=== PATIENT | male | born 1940 | race Caucasian/White ===

== ENCOUNTER → 2018-04-17 | Outpatient (CLI) | payer MEDICARE ==
[2018-04-17 12:30] LABS: BASOPHILS # (AUTO) 0.03 x10^3/uL (0-0.1); BASOPHILS % (AUTO) 1 % (0-1); EOSINOPHILS # (AUTO) 0.37 x10^3/uL (0-0.4); EOSINOPHILS % (AUTO) 7 % (1-7); LYMPHOCYTES # (AUTO) 1.77 x10^3/uL (1-3.4); LYMPHOCYTES % (AUTO) 35 % (22-44); MD NO; MEAN CORPUSCULAR HEMOGLOBIN 32.4 pg (27.5-34.5); MEAN CORPUSCULAR HGB CONC 33.4 g/dL (33.2-36.2); MEAN CORPUSCULAR VOLUME 96.9 fL (81-97); MEAN PLATELET VOLUME 8.2 fL (7.4-10.4); MONOCYTES # (AUTO) 0.42 x10^3/uL (0.2-0.8); MONOCYTES % (AUTO) 8 % (2-9); NEUTROPHILS % (AUTO) 49 % (42-75); PLATELET COUNT 222 x10^3/uL (130-400); RED BLOOD COUNT 4.57 x10^6/uL (4.38-5.82); RED CELL DISTRIBUTION WIDTH 14.1 % (9.4-14.8)
[2018-04-17 12:51] LABS: CHLORIDE 105 mmol/L (98-107); HEMOGLOBIN A1C 6.4 % (4.2-6.3)
[2018-04-17 13:08] LABS: ALANINE AMINOTRANSFERASE 31 U/L (12-78); ALBUMIN 3.9 g/dL (3.4-5.0); ALKALINE PHOSPHATASE 66 U/L (45-117); ANION GAP 7 mmol/L (5-15); BILIRUBIN,TOTAL 1.1 mg/dL (0.2-1.0); CALCIUM 9.3 mg/dL (8.5-10.1); CHOL/HDL RATIO 3.5; CHOLESTEROL, TOTAL 132 mg/dL (140-239); CREATININE 1.04 mg/dL (0.7-1.3); HDL CHOL % 29 % (26-37); HDL CHOLESTEROL (DIRECT) 38 mg/dL (40-60); LDL CHOLESTEROL,CALCULATED 68 mg/dL (54-169); LDL/HDL RATIO 1.8 (0.5-3.0); TOTAL PROTEIN 7.2 g/dL (6.4-8.2); TRIGLYCERIDES 130 mg/dL (50-200); VLDL CHOLESTEROL 26 mg/dL (0-25)
== END | disposition home or self-care (01) ==
LOC: EDSEX 08:15 → CFH 08:18
PROVIDERS: ATTEND Physician Assistant
DX: I71.4 Abdominal aortic aneurysm, without rupture (principal); Q61.02 Congenital multiple renal cysts; M81.0 Age-related osteoporosis without current pathological fracture; N40.0 Benign prostatic hyperplasia without lower urinary tract symptoms; I11.9 Hypertensive heart disease without heart failure; G47.00 Insomnia, unspecified; E78.5 Hyperlipidemia, unspecified; G31.84 Mild cognitive impairment of uncertain or unknown etiology; E55.9 Vitamin D deficiency, unspecified; R73.01 Impaired fasting glucose; R09.02 Hypoxemia
CPT/HCPCS: 36415; 76770; 77080; 80053; 80061; 82306; 83036; 84153; 84402; 84403; 84443; 85025; 93306

== ENCOUNTER → 2018-04-24 | Outpatient (CLI) | payer MEDICARE | END | disposition home or self-care (01) | LOC: CFH 14:39 | PROVIDERS: ATTEND Physician Assistant | DX: Z00.01 Encounter for general adult medical examination with abnormal findings (principal); Z13.220 Encounter for screening for lipoid disorders; Z12.11 Encounter for screening for malignant neoplasm of colon; Z12.5 Encounter for screening for malignant neoplasm of prostate; I10 Essential (primary) hypertension; E78.5 Hyperlipidemia, unspecified; G47.00 Insomnia, unspecified; R09.02 Hypoxemia; I71.4 Abdominal aortic aneurysm, without rupture; K21.9 Gastro-esophageal reflux disease without esophagitis; K22.70 Barrett's esophagus without dysplasia; M25.561 Pain in right knee; G31.84 Mild cognitive impairment of uncertain or unknown etiology; R73.01 Impaired fasting glucose; R01.1 Cardiac murmur, unspecified; M54.5 Low back pain; N28.89 Other specified disorders of kidney and ureter; E55.9 Vitamin D deficiency, unspecified; R79.9 Abnormal finding of blood chemistry, unspecified; R93.8 Abnormal findings on diagnostic imaging of other specified body structures | CPT/HCPCS: 36415; 83001; 83002; 84146 ==

== ENCOUNTER → 2019-01-16 | Outpatient (CLI) | payer MEDICARE ==
[2019-01-16 13:38] LABS: MICROSCOPIC NOT IND
[2019-01-16 13:46] LABS: CULTURE INDICATED? NO
== END | disposition home or self-care (01) ==
LOC: CFH 11:02
PROVIDERS: ATTEND Physician Assistant
DX: I10 Essential (primary) hypertension (principal); E78.5 Hyperlipidemia, unspecified; K21.9 Gastro-esophageal reflux disease without esophagitis; E55.9 Vitamin D deficiency, unspecified; N40.0 Benign prostatic hyperplasia without lower urinary tract symptoms; K22.70 Barrett's esophagus without dysplasia; R73.01 Impaired fasting glucose
CPT/HCPCS: 36415; 81003; 84153

== ENCOUNTER 2019-06-12 14:44 | Outpatient (CLI) | payer MEDICARE ==
[2019-06-12] MEDS ORDERED: FINA5TAB4 PO (15:41)
[2019-06-12] MEDS ORDERED: MIRT-34 PO (15:41)
[2019-06-12] MEDS ORDERED: MISO100T4 PO (15:41)
[2019-06-12] MEDS ORDERED: ASPI81TA45 PO (15:41)
[2019-06-12] MEDS ORDERED: [UNRECOGNIZED DRUG - OTHER] PO (15:41)
[2019-06-12] MEDS ORDERED: TEST100V2 IM (15:41)
[2019-06-12] MEDS ORDERED: ATOR40TA78 PO (15:41)
[2019-06-12] MEDS ORDERED: AMLO10TA8 PO (15:41)
[2019-06-12] MEDS ORDERED: TAMS-11 PO (15:41)
[2019-06-12] MEDS ORDERED: TRIAMCINOLONE ACET TP (15:41)
[2019-06-12 15:46] LABS: BASOPHILS # (AUTO) 0.02 x10^3/uL (0-0.1); BASOPHILS % (AUTO) 0 % (0-1); EOSINOPHILS # (AUTO) 0.31 x10^3/uL (0-0.4); EOSINOPHILS % (AUTO) 4 % (1-7); LYMPHOCYTES # (AUTO) 2.22 x10^3/uL (1-3.4); LYMPHOCYTES % (AUTO) 28 % (22-44); MD NO; MEAN CORPUSCULAR HEMOGLOBIN 31.5 pg (27.5-34.5); MEAN CORPUSCULAR HGB CONC 32.6 g/dL (33.2-36.2); MEAN CORPUSCULAR VOLUME 96.4 fL (81-97); MONOCYTES # (AUTO) 0.54 x10^3/uL (0.2-0.8); MONOCYTES % (AUTO) 7 % (2-9); NEUTROPHILS # (AUTO) 4.78 x10^3/uL (1.8-6.8); NEUTROPHILS % (AUTO) 61 % (42-75); PLATELET COUNT 232 x10^3/uL (130-400); RED BLOOD COUNT 5.38 x10^6/uL (4.38-5.82); RED CELL DISTRIBUTION WIDTH 14.4 % (9.4-14.8)
[2019-06-12 15:48] LABS: MICROSCOPIC NOT IND
[2019-06-12 15:55] LABS: ALANINE AMINOTRANSFERASE 33 U/L (12-78); ANION GAP 5 mmol/L (5-15); CHLORIDE 107 mmol/L (98-107); CREATININE 1.02 mg/dL (0.7-1.3)
[2019-06-12 15:57] LABS: ALKALINE PHOSPHATASE 72 U/L (45-117); BILIRUBIN,TOTAL 1.1 mg/dL (0.2-1.0); TOTAL PROTEIN 7.8 g/dL (6.4-8.2)
[2019-06-12 16:07] LABS: INTERNATIONAL NORMALIZED RATIO 1.05 (0.93-1.1)
== END 2019-06-12 23:59 | disposition home or self-care (01) ==
LOC: STAR 14:44
PROVIDERS: ATTEND Urology
DX: Z01.818 Encounter for other preprocedural examination (principal); N40.1 Benign prostatic hyperplasia with lower urinary tract symptoms; I34.0 Nonrheumatic mitral (valve) insufficiency; I48.91 Unspecified atrial fibrillation; J44.9 Chronic obstructive pulmonary disease, unspecified; I50.9 Heart failure, unspecified; Z95.0 Presence of cardiac pacemaker
CPT/HCPCS: 36415; 80053; 81003; 85025; 85610; 85730; 87086; 93005

== ENCOUNTER 2019-06-19 10:36 | Inpatient (IN) | payer MEDICARE ==
[~2019-06-19] VITALS: Ht 190.5 cm; Wt 125.0 kg
[~2019-06-19 10:36] MED LIST: AMLO10TA8 PO; ASPI81TA45 PO; ATOR40TA78 PO; FINA5TAB4 PO; MIRT-34 PO; MISO100T4 PO; TAMS-11 PO; TEST100V2 IM; TRIAMCINOLONE ACET TP; [UNRECOGNIZED DRUG - OTHER] PO
[2019-06-19] MEDS ORDERED: FENTANYL PF 250 MCG/5ML ONE (10:38)
[2019-06-19] MEDS ORDERED: MIDAZOLAM 1 MG/ML, 2ML ONE (10:38)
[2019-06-19] MEDS ORDERED: LACTATED RINGERS 1,000 ML IV SCH (10:50)
[2019-06-19] MEDS ORDERED: ONDANSETRON 2MG/ML, 2ML IV PRN ×2 (11:00→16:00)
[2019-06-19] MEDS ORDERED: HYDROmorphone 2 MG/ML, 1ML IVPush PRN (11:00)
[2019-06-19] MEDS ORDERED: hydrALAzine 20 MG/ML, 1ML IV PRN (11:00)
[2019-06-19] MEDS ORDERED: LABETALOL 5MG/ML, 20ML IV PRN (11:00)
[2019-06-19] MEDS ORDERED: PROMETHAZINE 25 MG/ML, 1ML IV PRN (11:00)
[2019-06-19] MEDS ORDERED: OXYcodone 5 MG/5 ML ORAL.SOL UDC PO PRN (11:00)
[2019-06-19] MEDS ORDERED: CEFAZOLIN 1,000 MG ONE ×2 (12:37)
[2019-06-19] MEDS ORDERED: PROPOFOL 10 MG/ML, 20ML ONE (12:37)
[2019-06-19] MEDS ORDERED: DEXAMETHASONE 4 MG/ML, 1ML ONE (12:38)
[2019-06-19] MEDS ORDERED: EPHEDRINE 50 MG/ML, 1ML ONE (13:24)
[2019-06-19] MEDS ORDERED: ONDANSETRON 2MG/ML, 2ML ONE (13:25)
[2019-06-19] MEDS ORDERED: OPIUM/BELLADONNA SUPP.RECT 16.2-60 MG ONE (13:59)
[2019-06-19] MEDS: FENTANYL PF 100 MCG/2ML IV PRN ×2 (14:28→14:40)
[2019-06-19] MEDS ORDERED: OXYcodone 5 MG/5 ML ORAL.SOL UDC ONE (14:33)
[2019-06-19] MEDS ORDERED: FENTANYL PF 100 MCG/2ML ONE (14:33)
[2019-06-19] MEDS ORDERED: PROMETHAZINE 25 MG/ML, 1ML ONE (14:41)
[2019-06-19 15:20] VITALS: BP 114/71
[2019-06-19] MEDS ORDERED: ACETAMINOPHEN 325 MG TABLET PO PRN (15:30)
[2019-06-19] MEDS ORDERED: SODIUM CHLORIDE 0.9% 1,000 ML IV SCH (16:00)
[2019-06-19] MEDS ORDERED: HYDROCODONE MC SCH (16:00)
[2019-06-19] MEDS ORDERED: OPIUM/BELLADONNA SUPP.RECT 16.2-30 MG PR PRN (16:00)
[2019-06-19] MEDS: HYDROcodone/APAP 5/325 TABLET PO PRN ×2 (18:10→23:49)
[2019-06-19] MEDS ORDERED: CEFAZOLIN PMX 1GM/50ML 50 ML IVPB SCH (18:30)
[2019-06-19 19:56] VITALS: BP 144/88
[2019-06-19] MEDS ORDERED: ATORVASTATIN 40 MG TABLET PO SCH (21:00)
[2019-06-20 01:27] VITALS: BP 107/67
[2019-06-20] MEDS ORDERED: CEFAZOLIN PMX 1GM/50ML 50 ML IVPB SCH (02:30)
[2019-06-20 04:04] VITALS: BP 145/73
[2019-06-20 05:46] LABS: ANION GAP 4 mmol/L (5-15); CALCIUM 8.2 mg/dL (8.5-10.1); CHLORIDE 106 mmol/L (98-107)
[2019-06-20 05:47] LABS: CREATININE 0.94 mg/dL (0.7-1.3)
[2019-06-20] MEDS: HYDROcodone/APAP 5/325 TABLET PO PRN (06:38)
[2019-06-20 08:04] VITALS: BP 116/70
[2019-06-20] MEDS ORDERED: AMLODIPINE 10 MG TAB PO SCH (09:00)
[2019-06-20] MEDS ORDERED: MISOPROSTOL 100 MCG TABLET PO SCH (09:00)
[2019-06-20] MEDS ORDERED: FINASTERIDE 5 MG TABLET PO SCH (09:00)
[2019-06-20] MEDS: MIRTAZAPINE 15 MG TABLET PO SCH ×2 (09:14→09:22)
[2019-06-20 13:54] VITALS: BP 126/75
== END 2019-06-20 15:12 | disposition home or self-care (01) | DRG 713 ==
LOC: OUT 10:36 → 4NE 15:19 → OUT 15:56 → DCLOUNGE 06-20 15:03
PROVIDERS: ADMIT Urology; ATTEND Urology
PROC: 0VT08ZZ Resection of Prostate, Via Natural or Artificial Opening Endoscopic (ICD-10-PCS; principal; 2019-06-19 12:30)
DX: N40.1 Benign prostatic hyperplasia with lower urinary tract symptoms (principal); N13.8 Other obstructive and reflux uropathy; N32.89 Other specified disorders of bladder; I10 Essential (primary) hypertension; R33.8 Other retention of urine
CPT/HCPCS: 36415; 80048; 85014; 85018; 88305; G0378; J0690; J1100; J2250; J2405; J2550; J2704; J3010; J7030; J7120

== ENCOUNTER → 2020-06-22 | Outpatient (CLI) | payer MEDICARE ==
[~2020-06-22] MED LIST changes: +AMLO-211 PO; -AMLO10TA8 PO; -MISO100T4 PO; +MISO100T7 PO; +OMNIPAQUE 350 MG/ML, 100ML BOTTLE ONE
== END | disposition home or self-care (01) ==
LOC: CFH 10:30
PROVIDERS: ATTEND Surgery
DX: I71.4 Abdominal aortic aneurysm, without rupture (principal); R19.09 Other intra-abdominal and pelvic swelling, mass and lump; N28.1 Cyst of kidney, acquired; I25.10 Atherosclerotic heart disease of native coronary artery without angina pectoris; Z90.49 Acquired absence of other specified parts of digestive tract
CPT/HCPCS: 74174; 82565; Q9967

== ENCOUNTER 2020-07-09 06:10 | Day surgery (SDC) | payer MEDICARE ==
[~2020-07-09] VITALS: Ht 190.5 cm; Wt 115.6 kg
[~2020-07-09 06:10] MED LIST changes: -OMNIPAQUE 350 MG/ML, 100ML BOTTLE ONE
[2020-07-09 07:08] VITALS: BP 132/66
[2020-07-09] MEDS ORDERED: SODIUM CHLORIDE 0.9% 1,000 ML IV SCH (07:09)
[2020-07-09] MEDS ORDERED: FENTANYL PF 100 MCG/2ML ONE (07:49)
[2020-07-09] MEDS ORDERED: FLUMAZENIL 0.1 MG/1 ML, 5ML ONE (07:49)
[2020-07-09] MEDS ORDERED: NALOXONE 1 MG/ML, 2ML ONE (07:49)
[2020-07-09] MEDS ORDERED: MIDAZOLAM 1 MG/ML, 5ML ONE (07:49)
== END 2020-07-09 10:35 | disposition home or self-care (01) ==
LOC: OUT 06:10 → EDSTATUS 08:00 → OUT 10:35
PROVIDERS: ATTEND Thoracic Surgery (Cardiothoracic Vascular Surgery)
DX: R19.04 Left lower quadrant abdominal swelling, mass and lump (principal); I10 Essential (primary) hypertension; G47.30 Sleep apnea, unspecified; E78.00 Pure hypercholesterolemia, unspecified; Z72.0 Tobacco use; Z90.49 Acquired absence of other specified parts of digestive tract; Z79.82 Long term (current) use of aspirin; Z79.1 Long term (current) use of non-steroidal anti-inflammatories (NSAID); Z86.73 Personal history of transient ischemic attack (TIA), and cerebral infarction without residual deficits; Z79.899 Other long term (current) drug therapy; Z98.890 Other specified postprocedural states
CPT/HCPCS: 49180; 77012; 88305; 99156; 99157; J2250; J3010; J7030; J2310

== ENCOUNTER → 2021-05-19 | Outpatient (CLI) | payer MEDICARE | END | disposition home or self-care (01) | LOC: CVU 07:46 | PROVIDERS: ATTEND Internal Medicine Cardiovascular Disease | DX: I71.4 Abdominal aortic aneurysm, without rupture (principal) ==